=== PATIENT | female | born 1995 | race Caucasian/White ===

== ENCOUNTER → 2018-11-17 | Outpatient (CLI) | payer BC ==
--- NOTE | 2018-11-17 14:13 | RADIOLOGY IMAGING REPORT ---
FACILITY: [facility] - [place] PATIENT NAME: Carol Medina : 1995 MR: [id number] V: [id number] EXAM DATE: ORDERING PHYSICIAN: THEODORE DE LEÓN TECHNOLOGIST: Location: [facility] - [place] Patient: Carol Medina : 1995 Visit/Account:[id number] Date of Sevice: 11/17/2018 PELVIC HISTORY: Inflammatory pelvic disease, discharge x2 years, pelvic pain during population TECHNIQUE: Transvaginal and transabdominal ultrasound pelvis. COMPARISON: None. FINDINGS: Uterus: Retroflexed; 6.8 cm length x 3.3 cm AP x 4.5 cm transverse. Myometrium: Unremarkable. Endometrium: Unremarkable; double thickness 5.2 mm. Cervix: A small amount of fluid is noted in the endocervical canal. Ovaries: Right - 3 x 2.2 x 3.1 cm.. There are multiple small peripheral follicles in the right ovary. T his can be seen with polycystic ovary syndrome Left - 4.8 x 2.7 x 2.5 cm. Multiple small peripheral follicles in the left ovary which can be s een with polycystic ovary syndrome. There is a dominant cyst in the left ovary measuring 2.6 cm in d iameter. This contains a small daughter cyst measuring 7 mm in diameter. Blood flow is documented in each ovary by duplex Doppler ultrasound. Adnexa: Grossly unremarkable. Free pelvic fluid: Mild. IMPRESSION: There multiple peripheral follicles in both ovaries which can be seen with polycystic ovary syndrome. Clinical correlation needed There is a dominant 2.6 cm cyst in the left ovary with a 7 mm daughter cyst Small amount of free pelvic fluid Small amount of fluid noted in the endocervical canal Report Dictated By: Libia Glasgow MD at 11/17/2018 2:04 PM Report E-Signed By: Libia Glasgow MD at 11/17/2018 2:08 PM WSN:[email or web address]
== END ==
LOC: US 10:00
PROVIDERS: ATTEND Family Medicine
DX: N83.292 Other ovarian cyst, left side (principal); N83.291 Other ovarian cyst, right side
CPT/HCPCS: 76856